=== PATIENT | female | born 1980 | race Caucasian/White ===

== ENCOUNTER 2017-10-14 13:28 | Emergency (ER) | payer SELFPAY ==
[2017-10-14 13:49] VITALS: BP 133/81; PULSE 75; RESP 16; TEMP 98.7; O2SAT 98; BMI 25.9
--- NOTE | 2017-10-14 13:52 | C.PDOC ---
History Of Present Illness 37 yo female w/o significant PMHx come in for evaluation of Right breast pain intermittent for past 2 weeks. Pt reports, pain is localized over Right breast, sharp, " burning", reproducible at time. Pt admits, was diagnosed with Right breast cyst in past " was drained". Otherwise, pt denies fever, chills, known trauma or injury, skin or nipple changes, not breast feeding at present time, denies control use, denies any other active complaints suck as CP, SOB, dyspnea, cough, palpitation. Ambulate to Ed for evaluation, not in any apparent distress. Time Seen by Provider: 10/14/17 13:30 Chief Complaint (Nursing): Breast Problem History Per: Patient Past Medical History Reviewed: Historical Data, Nursing Documentation, Vital Signs Vital Signs: Last Vital Signs Temp 98.7 F 10/14/17 13:37 Pulse 75 10/14/17 13:37 Resp 16 10/14/17 13:37 BP 133/81 10/14/17 13:37 Pulse Ox 98 10/14/17 13:37 - Medical History PMH: No Chronic Diseases Family History: States: No Known Family Hx - Social History Hx Tobacco Use: No Hx Alcohol Use: No Hx Substance Use: No - Immunization History Hx Tetanus Toxoid Vaccination: No Hx Influenza Vaccination: No Hx Pneumococcal Vaccination: No Review Of Systems Except As Marked, All Systems Reviewed And Found Negative. Constitutional: Negative for: Fever, Chills ENT: Negative for: Throat Pain Cardiovascular: Negative for: Chest Pain, Palpitations, Edema, Light Headedness Respiratory: Negative for: Cough, Shortness of Breath, Pleuritic Pain, Sputum, Wheezing Gastrointestinal: Negative for: Nausea, Vomiting, Abdominal Pain Genitourinary: Negative for: Dysuria, Incontinence Musculoskeletal: Negative for: Neck Pain Skin: Negative for: Rash, Bruising Neurological: Negative for: Weakness, Numbness, Headache Physical Exam - Physical Exam Appears: Well, Non-toxic, No Acute Distress Skin: Normal Color, Warm, Dry, No Rash, No Ecchymosis Head: Normacephalic Eye(s): bilateral: PERRL Nose: No Flaring Oral Mucosa: Moist, No Drooling Tongue: Normal Appearing Lips: Normal Appearing Throat: No Drooling Neck: Normal ROM, Trachea Midline, Supple Lymphatic: No Axilla Node Tenderness (Right) Chest: Symmetrical, No Deformity, No Tenderness, Other (Right breast small palpable mass at 1 o'clock. NO erythema, no flactualnce. Nipple normal.) Cardiovascular: Rhythm Regular, No Murmur, No JVD Respiratory: No Decreased Breath Sounds, No Accessory Muscle Use, No Stridor, No Wheezing Gastrointestinal/Abdominal: Soft, No Tenderness, No Distention, No Guarding Back: No CVA Tenderness Extremity: Normal ROM, No Deformity, No Swelling Neurological/Psych: Oriented x3, Normal Speech ED Course And Treatment O2 Sat by Pulse Oximetry: 98 Pulse Ox Interpretation: Normal Progress Note: On re-evaluation, pt is afebrile, hemodynamicaly stable. Non- toxic. PulseOx 98% RA. ENT: NO acute findings. neck: Supple, (-) JVD. Lungs : CTA B/L, BS equal B/L. CVS: (+)S1S2, reg, (-) murmur. Right breast: exam c/ w small palpable tender mobile mass at 1 o'clock, no erythema, no flactualnce. NO Right axillary lymphodenopathy. Abd: benign. Neurologicaly intact. Pt advised. ref. to f/u with [facility], Breast Specialist in 2-3 days for re-eval. return to ED if any worsening or new changes. Disposition Counseled Patient/Family Regarding: Diagnosis, Need For Followup - Disposition [facility] Disposition: HOME/ ROUTINE Disposition Time: 13:48 Condition: STABLE Additional Instructions: Follow up with [facility] in 2-3 days for re-evaluation, MAMMOGRAPHY Return if any new changes. Instructions: Mastalgia, Mammography - Clinical Impression Clinical Impression: Pain of breast
== END 2017-10-14 13:57 | disposition home or self-care (01) ==
LOC: C.ER 13:28
DX: N64.4 Mastodynia (principal)

== ENCOUNTER 2018-08-06 12:34 | Outpatient (CLI) | payer OTHER | END 2018-08-06 12:35 | disposition home or self-care (01) | LOC: C.USIC 12:34 | DX: R92.8 Other abnormal and inconclusive findings on diagnostic imaging of breast (principal) ==